=== PATIENT | male | born 1995 | race Two or more races ===

== ENCOUNTER 2023-01-07 18:01 | Emergency (ER) | payer MEDICAID ==
[~2023-01-07] VITALS: Ht 182.9 cm; Wt 126.2 kg
[2023-01-07 20:11] VITALS: BP 148/88
[2023-01-07] MEDS ORDERED: DexAMETHasone SOD PHOS 10MG/1ML VIAL INJ IM ONE (21:15)
[2023-01-07] MEDS ORDERED: PENICILLIN G BENZ 600000 UNIT/ML 1ML SYRG IM ONE (21:30)
[2023-01-07] MEDS ORDERED: ALBUTEROL SULF 2.5 MG/0.5ML(0.5%) NEB SOLN NEB ONE (22:00)
[2023-01-07] MEDS ORDERED: IPRATROPIUM BROM 0.5 MG/2.5ML INH SOL NEB ONE (22:00)
[2023-01-07] MEDS ORDERED: AMOX500T86 PO (22:10)
== END 2023-01-08 00:17 | disposition home or self-care (01) ==
LOC: ER 18:12
DX: J10.1 Influenza due to other identified influenza virus with other respiratory manifestations (principal); H66.93 Otitis media, unspecified, bilateral; R07.89 Other chest pain; Z79.2 Long term (current) use of antibiotics; Z20.822 Contact with and (suspected) exposure to COVID-19
CPT/HCPCS: 36415; 71046; 87070; 87426; 87804; 87880; 93005; 94640; 96372; 99285; J0561; J1100; J7644